=== PATIENT | female | born 1955 | race Caucasian/White ===

== ENCOUNTER 2023-06-24 22:50 | Emergency (ER) | payer MEDICARE, SELFPAY ==
[2023-06-24] VITALS (7 sets, daily range): BP systolic 168; BP diastolic 69; PULSE 104–120; RESP 17–32; TEMP 37.6; O2SAT 98
--- NOTE | 2023-06-24 23:00 | RT.EKG_ITS ---
APPROVED REPORT Exam: Resting ECG Reason for Exam: vomiting Patient Location: E HR:101 bpm ECG Measurements Heart Rate 101 AXIS UT 144 P 78 QRSd 95 QRS -31 QT 324 T 23 QTc 421 Conclusion Sinus tachycardia...rate> 99 Probable left atrial enlargement...P >50mS, <-0.10mV V1 Left axis deviation...QRS axis (-30,-90) Low voltage, precordial leads...precordial leads <1.0mV No ST segment or T wave abnormalities to suggest occlusive AR.
--- NOTE | 2023-06-24 23:00 | DI.CT_ITS ---
Exam(s) CT ABDOMEN PELVIS WO EXAM: CT ABDOMEN PELVIS WO CLINICAL HISTORY: N/V, epigastric tenderness. TECHNIQUE: Imaging Protocol: Axial computed tomography images with coronal and sagittal reformatted images were created and reviewed CONTRAST MATERIAL: Intravenous: none Oral: None COMPARISON: No exams were available for comparison FINDINGS: VISUALIZED LUNG BASES: Mild infiltrate and atelectasis in the right lung base. No pleural effusions. ABDOMEN: There is no ascites. LIVER: There are no obvious focal hepatic lesions evident of this noninfused study. GALLBLADDER/BILIARY: Gallbladder not seen and may be surgically absent. No obvious dilatation of celia iary tree evident on this non few study. PANCREAS: No evidence of pancreatic mass nor dilatation of the pancreatic duct. SPLEEN: Spleen is not enlarged. No obvious intrasplenic lesions. ADRENALS: Right adrenal gland unremarkable. There is a hypodense nodule in the left adrenal gland me asuring 1.6 by 1.2 cm. Hounsfield units -24. Probable benign adenoma. KIDNEYS:Left kidney unremarkable. There is a 4-5 millimeter nonobstructive calculus in the right kid edith. No other focal renal findings. No solid renal masses. No calculi nor hydronephrosis. . ABDOMINAL AORTA: Calcified but not enlarged. LYMPH NODES: There is no retroperitoneal nor paraaortic adenopathy. ABDOMINAL WALL: No evidence of significant anterior abdominal wall nor inguinal hernia. GI: There is no evidence of bowel obstruction, free air, nor abscess. PELVIS: LYMPH NODES: There is no intrapelvic nor inguinal adenopathy. GI: No evidence of appendicitis.No evidence of sigmoid diverticulitis. URINARY BLADDER: No calculi nor obvious masses evident REPRODUCTIVE: Thickened or fluid-filled endometrial cavity. Ultrasound recommended. No abnormal adn exal masses. No free fluid. OSSEOUS: Nonacute appearing 60 percent compression fracture of T12 as well as milder superior endplat e compression fractures in the lumbar spine multiple levels. No acute appearing fractures. No lytic nor blastic osseous lesions identified. IMPRESSION: 1. There is a 16 x 12 mm hypodense left adrenal nodule which, given the Hounsfield unit measurements, is most probably a benign adenoma. The opposite-right adrenal gland appears unremarkable. 2. Thickened or fluid-filled prominent endometrial cavity. Ultrasound is recommended for further jluis dy of the endometrium. 3. Multiple nonacute compression fractures, most prominent at T12 level. RADIATION DOSE DELIVERED: 810.32mGy.cm Total DLP DATA REPOSITORY: All CT scans at this facility are submitted to the National Radiology Data Registry (NRDR) Dose Index Registry (DIR) with the [employer] ([employer]). RADIATION OPTIMIZATION: All CT scans at this facility use at least one of these dose optimization te chniques: automated exposure control; mA and/or kV adjustment per patient size (includes targeted exa ms where dose is matched to clinical indication); or iterative reconstruction.
--- NOTE | 2023-06-24 23:12 | W.ED.GENAD ---
Discharge Plan Discharge Details Chief Complaint: Nausea/Vomit/Diar ED Provider: Guadalupe Justice General Date/Time Provider Initiated Documentation: 06/24/23 23:00. Stated Complaint: Nausea/Vomit/Diar NIRU: 3 Course Vital Signs Vital signs: Vital Signs Temperature 36.4 C L 06/24/23 22:45 Pulse 107 H 06/24/23 22:45 Respiratory Rate 20 06/24/23 22:45 Blood Pressure 168/69 H 06/24/23 22:45 Pulse Oximetry 98 06/24/23 22:45 Temperature 36.4 C L 06/24/23 22:45 Pulse 107 H 06/24/23 22:45 Respiratory Rate 20 06/24/23 22:45 Respiratory Effort Normal 06/24/23 22:49 Blood Pressure 168/69 H 06/24/23 22:45 Pulse Oximetry 98 06/24/23 22:45 Oxygen Delivery Method Nasal Cannula 06/24/23 22:45 Oxygen Flow Rate 3 06/24/23 22:45 Pain Level 10 06/24/23 22:45 Medical Decision Making Quality:SDOH Health Related Social Needs: No Data to Display PFSH Social History Smoking risk assessment performed?: No Housing: pen[facility]entiary
--- NOTE | 2023-06-24 23:13 | W.ED.GENAD ---
Discharge Plan Disposition Patient Disposition: Transfer-Acute Inpatient Care Specific Acute Inpt Facility: [facility] Condition: Critical Discharge Details Clinical Impression: DKA (diabetic ketoacidosis) Primary Care Provider: Unknown,Unknown ED Provider: Guadalupe Justice Home Meds and New Rx's Prescriptions: No Action Airsupra 90-80 mcg/actuation HFA aerosol inhaler 2 inh inhalation TID PRN aspirin [Adult Aspirin Regimen] 81 mg tablet,delayed release (DR/EC) 81 mg PO DAILY budesonide-formoterol [Breyna] 160-4.5 mcg/actuation HFA aerosol inhaler 2 inh inhalation BID cholecalciferol (vitamin D3) 25 mcg (1,000 unit) capsule 25 mcg PO DAILY clonazepam 1 mg tablet 1 mg PO BID clotrimazole 1 % cream 1 applic topical BID bisacodyl [Dulcolax (bisacodyl)] 10 mg suppository 10 mg OK DAILY PRN duloxetine 60 mg capsule,delayed release(DR/EC) 60 mg PO DAILY Enema 19-7 gram/118 mL enema 118 ml OK DAILY PRN gabapentin 600 mg tablet 600 mg PO BID hydromorphone 2 mg tablet 2 mg PO Q6H insulin aspart U-100 [Novolog FlexPen U-100 Insulin] 100 unit/mL (3 mL) insulin pen 1 sliding scale dose subcut USEASDIRECTD insulin glargine 100 unit/mL (3 mL) insulin pen, sensor 10 unit subcut QPM insulin glargine 100 unit/mL (3 mL) insulin pen, sensor 10 unit subcut QAM lidocaine [Lidoderm] 5 % adhesive patch,medicated 1 patch topical DAILY Rx Instructions: leave on most painful area for up to 12 hrs magnesium hydroxide [Milk of Magnesia] 400 mg/5 mL suspension 10 ml PO QID PRN polyethylene glycol 3350 [Miralax] 17 gram/dose powder 17 g PO DAILY montelukast 10 mg tablet 10 mg PO QHS insulin aspart U-100 [Novolog FlexPen U-100 Insulin] 100 unit/mL (3 mL) insulin pen 3 unit subcut QACBREAK insulin aspart U-100 [Novolog U-100 Insulin aspart] 100 unit/mL solution 3 unit subcut QACLUNCH insulin aspart U-100 [Novolog FlexPen U-100 Insulin] 100 unit/mL (3 mL) insulin pen 3 unit subcut QACDINNER lansoprazole [Prevacid SoluTab] 30 mg tablet,disintegrat, delay rel 30 mg PO DAILY rosuvastatin 5 mg tablet 5 mg PO DAILY sennosides [Sen-O-Tab] 8.6 mg tablet 8.6 mg PO BID acetaminophen [Acetaminophen Extra Strength] 500 mg tablet 500 mg PO ONCE HPI General Mode of arrival: EMS. Date/Time Provider Initiated Documentation: 06/24/23 23:00. Limitations to Documentation: no limitations. Information obtained by: patient, EMS and old records reviewed. HPI Narrative: 68yo F with history of T1DM, COPD on baseline 3L NC, CAD, failure to thrive, presenting from subacute rehab facility for nausea and vomiting. Patient poor historian, medical history obtained from rehab records. Patient reports vomiting since 0400 yesterday, unable to keep anything down. Associated epigastric abdominal pain. Not sure why she is in rehab, just that [facility] sent me there. Went to [facility] initially for my daughter drove me there; when asked why states the same as now. Based on records sent with patient, appears to have been admitted to rehab 06/22/23. Blood glucose for EMS 263. She is otherwise in her usual state of health with no fevers, chills, rash, dysuria, hematuria, numbness, tingling, weakness, or other concerns. Related Data Home Medications Medication Instructions Recorded Confirmed albuterol 90 mcg-budesonide 80 2 inh inhalation TID PRN 06/24/23 06/24/23 mcg/actuation HFA aerosol inhaler (Airsupra) aspirin 81 mg tablet,delayed 81 mg PO DAILY 06/24/23 06/24/23 release (Adult Aspirin Regimen) budesonide-formoterol HFA 160 2 inh inhalation BID 06/24/23 06/25/23 mcg-4.5 mcg/actuation aerosol inhaler (Breyna) acetaminophen 500 mg tablet 500 mg PO ONCE 06/25/23 06/25/23 (Acetaminophen Extra Strength) bisacodyl 10 mg rectal suppository 10 mg OK DAILY PRN 06/25/23 06/25/23 (Dulcolax (bisacodyl)) cholecalciferol (vitamin D3) 25 25 mcg PO DAILY 06/25/23 06/25/23 mcg (1,000 unit) capsule clonazepam 1 mg tablet 1 mg PO BID 06/25/23 06/25/23 clotrimazole 1 % topical cream 1 applic topical BID 06/25/23 06/25/23 duloxetine 60 mg capsule,delayed 60 mg PO DAILY 06/25/23 06/25/23 release gabapentin 600 mg tablet 600 mg PO BID 06/25/23 06/25/23 hydromorphone 2 mg tablet 2 mg PO Q6H 06/25/23 06/25/23 insulin aspart U-100 100 unit/mL 1 sliding scale dose subcut 06/25/23 06/25/23 (3 mL) subcutaneous pen (Novolog USEASDIRECTD FlexPen U-100 Insulin aspart) insulin aspart U-100 100 unit/mL 3 unit subcut QACBREAK 06/25/23 06/25/23 (3 mL) subcutaneous pen (Novolog FlexPen U-100 Insulin aspart) insulin aspart U-100 100 unit/mL 3 unit subcut QACDINNER 06/25/23 06/25/23 (3 mL) subcutaneous pen (Novolog FlexPen U-100 Insulin aspart) insulin aspart U-100 100 unit/mL 3 unit subcut QACLUNCH 06/25/23 06/25/23 subcutaneous solution (Novolog U-100 Insulin aspart) insulin glargine 100 unit/mL (3 10 unit subcut QAM 06/25/23 06/25/23 mL) subcutaneous pen, sensor insulin glargine 100 unit/mL (3 10 unit subcut QPM 06/25/23 06/25/23 mL) subcutaneous pen, sensor lansoprazole 30 mg delayed 30 mg PO DAILY 06/25/23 06/25/23 release,disintegrating tablet (Prevacid SoluTab) lidocaine 5 % topical patch 1 patch topical DAILY 06/25/23 06/25/23 (Lidoderm) magnesium hydroxide 400 mg/5 mL 10 ml PO QID PRN 06/25/23 06/25/23 oral suspension (Milk of Magnesia) montelukast 10 mg tablet 10 mg PO QHS 06/25/23 06/25/23 polyethylene glycol 3350 17 17 g PO DAILY 06/25/23 06/25/23 gram/dose oral powder (Miralax) rosuvastatin 5 mg tablet 5 mg PO DAILY 06/25/23 06/25/23 sennosides 8.6 mg tablet 8.6 mg PO BID 06/25/23 06/25/23 (Sen-O-Tab) sodium phosphates 19 gram-7 118 ml OK DAILY PRN 06/25/23 06/25/23 gram/118 mL enema (Enema) Allergies Allergy/AdvReac Type Severity Reaction Status Date / Time bee pollen Allergy Other (See Verified 06/25/23 00:21 Comment) latex Allergy Other (See Verified 06/25/23 00:21 Comment) morphine Allergy Other (See Verified 06/25/23 00:21 Comment) nickel Allergy Other (See Verified 06/25/23 00:21 Comment) Penicillins Allergy Other (See Verified 06/25/23 00:21 Comment) Sulfa (Sulfonamide Allergy Other (See Verified 06/25/23 00:21 Antibiotics) Comment) tetanus toxoid, adsorbed Allergy Other (See Verified 06/25/23 00:21 Comment) General Stated Complaint: Nausea/Vomit/Diar NIRU: 3 Review of Systems Narrative: see HPI Exam Narrative Exam Narrative: General: Alert, cluching emesis bag. Head: Normocephalic, atraumatic Neck: Trachea midline, ?Neck supple. ENT: ?MMM.? No oropharygeal lesions or exudate. Cardiac: ?RRR, no murmurs appreciated Resp: No respiratory distress. CTAB. Abd: ?Soft, non-distended, mild epigastric tenderness with no rebound or guarding. : ?No suprapubic tenderness. No CVA tenderness. Extremities: ?No deformities.? No peripheral edema. Neurologic: GCS 14. ? Moves all extremities freely against gravity Course Vital Signs Vital signs: Vital Signs Temperature 36.4 C L 06/24/23 22:45 Pulse 107 H 06/24/23 22:45 Respiratory Rate 20 06/24/23 22:45 Blood Pressure 168/69 H 06/24/23 22:45 Pulse Oximetry 98 06/24/23 22:45 Temperature 36.4 C L 06/24/23 22:45 Pulse 107 H 06/24/23 22:45 Respiratory Rate 20 06/24/23 22:45 Respiratory Effort Normal 06/24/23 22:49 Blood Pressure 168/69 H 06/24/23 22:45 Pulse Oximetry 98 06/24/23 22:45 Oxygen Delivery Method Nasal Cannula 06/24/23 22:45 Oxygen Flow Rate 3 06/24/23 22:45 Pain Level 10 06/24/23 22:45 Procedures Central Line Placement Left IJ: Time Out Performed: Yes Patient Placed on Monitor/Pulse Ox: Yes MD Prep: mask, gown and gloves Central Line Prep: Chlorhexidine scrub Local Anesthetic: Lidocaine 1% Amount of anesthesia used (mL): 3 Ultrasound Used for Placement: Yes Patient Tolerated Procedure: other Complications: hematoma at puncture site Additional Comments: Insertion attempted in left IJ under US guidance, patient moved during insertion of needle. Venous oozing from site afterwards however some developing swelling so concern for possible arterial puncture though not clear. Pressure held for 10 minutes, on reassessment stable echymosis, no further swelling. Reassess at one hour after again with no change. Right Femoral: Time Out Performed: Yes Patient Placed on Monitor/Pulse Ox: Yes MD Prep: mask, gown and gloves Central Line Prep: Chlorhexidine scrub and sterile drapes applied Local Anesthetic: Lidocaine 1% Amount of anesthesia used (mL): 3 Ultrasound Used for Placement: Yes Central Line Lumen Inserted: triple Post Procedure: good blood return, all ports aspirated, flushed, capped and sutured in place with 2-0 silk Patient Tolerated Procedure: well Complications: none Medical Decision Making 68yo F with history of T1DM, COPD on baseline 3L NC, CAD, failure to thrive, presenting from subacute rehab facility for nausea and vomiting. Patient poor historian, medical history obtained from rehab records. Vomiting since 0400 yesterday, associated epigastric pain, recent admission to [facility] for unknown reasons and dced to subactue rehab on 06/22/23. Blood glucose for EMS 263, given zofran [employer]. Hypertensive with SBP 160's, slightly tachcyardiac to 107 on arrival. Afebrile. Mild epigastric tenderness on exam. CT abd/pelvis independently reviewed; no obstruction or free fluid on my view, agree with radiology read below. Non-contrasted scan as patient with very difficult IV access. Labs reviewed as below, CBC with slight leukocytosis to 13; sepsis possible though less likely; is SIRS + with possible GI source. Pxn allergy, will do meropenum and fluid resus. Lipase not suggestive of pancreatitis, CMP with marked acidosis bicaarb of 12.3 and elevated gapt at 23.7, glucose 301. Concerning for DKA. VBG with pH 7.23, lactate 1.8 not source of acidosis. Continues fluid resuscitation, attempts made at PIV access without success and required central line placement which delayed initation of insulin. Started on insulin gtt and DKA protocol. No ICU capacity and [facility] at this time. Discussed with [facility] hospitalist Dr. Marte and patient accepted to ICU. Repeat BMP essentially unchanged. Continuing fluids/insulin/potassium per protocol. Awaiting transport. Imaging Data Radiologic Study: Imaging: CT Scan Radiologist's impression: IMPRESSION: 1. No acute findings on noncontrast imaging. 2. Incidental findings as described. Lab Data Lab results reviewed: Yes I reviewed the patient's lab results. Labs: Laboratory Tests Range/Units 06/24/23 06/25/23 06/25/23 23:18 01:00 01:03 WBC (4.4-10.8) 10^3/uL 12.97 H RBC (3.93-5.22) 10^6/uL 4.70 Hgb (11.2-15.7) g/dL 14.4 Hct (36.0-46.0) % 43.8 MCV (80-95) fL 93 MCH (27.0-33.0) pg 30.6 MCHC (32.0-36.0) % 32.9 RDW (11.7-14.6) % 15.1 H Plt Count (130-400) 10^3/uL 332 MPV (8.0-11.0) fL 9.9 Immature Gran % 0.7 Neutrophils % 82.7 Lymphocytes % 9.9 Monocytes % 5.6 Eosinophils % 0.8 Basophils % 0.3 Nucleated RBC % (0.0-0.3) % 0.0 Absolute Neutrophils (1.2-6.7) 10^3/uL 10.73 H Absolute Lymphocytes (1.2-3.4) 10^3/uL 1.28 Absolute Monocytes (0.1-0.8) 10^3/uL 0.73 Absolute Eosinophils (0.0-0.7) 10^3/uL 0.10 Absolute Basophils (0.0-0.2) 10^3/uL 0.04 VBG pH (7.31-7.41) 7.23 L VBG pCO2 (41-51) mmHg 35 L VBG pO2 mmHg 37 VBG HCO3 (23-28) mmol/L 15 L VBG Total CO2 (24-29) mmol/L 14 L VBG O2 Saturation % 63 VBG Base Excess (-2-3) mmol/L -13 L VBG Lactate (0.6-1.4) mmol/L 1.8 H Sodium (136-145) mmol/L 134 L Potassium (3.5-5.1) mmol/L 4.3 Chloride (98-107) mmol/L 98 Carbon Dioxide (21.0-32.0) mmol/L 12.3 L Anion Gap (3-11) mmol/L 23.7 H BUN (7-18) mg/dL 20 H Creatinine (0.55-1.02) mg/dL 1.0 Est GFR (CKD-EPI 2020) (mL/min/1.73m2) 60.61 Glucose (74-106) mg/dL 301 H Calcium (8.5-10.1) mg/dL 9.4 Magnesium (1.8-2.4) mg/dL 2.0 Total Bilirubin (0.2-1.0) mg/dL 1.0 AST (15-37) U/L 19 ALT (14-59) U/L 41 Alkaline Phosphatase (46-116) U/L 113 Troponin I (< or =60) ng/L < 50 Total Protein (6.4-8.2) g/dL 7.3 Albumin (3.4-5.0) g/dL 3.8 Lipase (16-77) U/L < 10 L Quality:SDOH Health Related Social Needs: No Data to Display Critical Care Time Critical Care Time Critical Care Time: Yes Total Critical Care Time: 36 Attestation: Due to a high probability of clinically significant, life threatening deterioration, the patient required my highest level of preparedness to intervene emergently and I personally spent this critical care time directly and personally managing the patient. This critical care time included obtaining a history; examining the patient; pulse oximetry; ordering and review of studies; arranging urgent treatment with development of a management plan; evaluation of patient's response to treatment; frequent reassessment; and, discussions with other providers. This critical care time was performed to assess and manage the high probability of imminent, life-threatening deterioration that could result in multi-organ failure. It was exclusive of separately billable procedures? PFSH All Active Problems (Updated 06/25/23 @ 04:16 by Guadalupe Justice MD) DKA (diabetic ketoacidosis) (Acute) Social History Smoking risk assessment performed?: No Housing: long term
[2023-06-24 23:24] LABS: Abs Immature Grans 0.09 10^3/uL (0.0-0.06); Absolute Basophil Count 0.04 10^3/uL (0.0-0.2); Absolute Monocyte Count 0.73 10^3/uL (0.1-0.8); Basophils % 0.3; Eosinophils % 0.8; HCT 43.8 % (36.0-46.0); HGB 14.4 g/dL (11.2-15.7); Immature Grans % 0.7; Lymphocytes % 9.9; MCH 30.6 pg (27.0-33.0); MCHC 32.9 % (32.0-36.0); MCV 93 fL (80-95); MPV 9.9 fL (8.0-11.0); Monocytes % 5.6; Neutrophils % 82.7; Platelet Count 332 10^3/uL (130-400); RDW 15.1 % (11.7-14.6); RDW-SD 52.5 fL; WBC 12.97 10^3/uL (4.4-10.8)
[2023-06-24 23:25] LABS: Absolute Lymphocyte Count 1.28 10^3/uL (1.2-3.4); Absolute Neutrophil Count 10.73 10^3/uL (1.2-6.7)
[2023-06-24] MEDS: Ondansetron 4 MG/2 ML VIAL IVP (23:29)
[2023-06-24] MEDS: Normal Saline 1,000 ML 1000 ML IV (23:29)
[2023-06-24 23:44] LABS: ALT 41 U/L (14-59); AST 19 U/L (15-37); Albumin 3.8 g/dL (3.4-5.0); Alkaline Phosphatase 113 U/L (46-116); Anion Gap 23.7 mmol/L (3-11); BUN 20 mg/dL (7-18); CO2 12.3 mmol/L (21.0-32.0); Calcium 9.4 mg/dL (8.5-10.1); Chloride 98 mmol/L (98-107); Estimated GFR 60.61 (mL/min/1.73m2); Glucose 301 mg/dL (74-106); Lipase < 10 U/L (16-77); Potassium 4.3 mmol/L (3.5-5.1); Sodium 134 mmol/L (136-145); Total Protein 7.3 g/dL (6.4-8.2); Troponin I < 50 ng/L (< or =60)
[2023-06-25] VITALS (55 sets, daily range): BP systolic 85–188; BP diastolic 50–139; PULSE 99–145; RESP 12–43
--- NOTE | 2023-06-25 00:21 | DI.VRAD_ITS ---
PROCEDURE INFORMATION: Exam: CT Abdomen And Pelvis Without Contrast Exam date and time: 06/24/2023 11:55 PM Age: 68 years old Clinical indication: Nausea and vomiting; Additional info: N/v, epigastric tenderness TECHNIQUE: Imaging protocol: Computed tomography of the abdomen and pelvis without contrast. COMPARISON: No relevant prior studies available. FINDINGS: Lungs: Minimal dependent subsegmental atelectasis. Liver: No hepatic masses on noncontrast imaging. Gallbladder and bile ducts: The gallbladder is either surgically absent or very contracted. Please correlate with surgical history. No significant biliary dilation or radiopaque stones in the biliary tree. Pancreas: No gross pathology in the pancreas on noncontrast imaging. Spleen: No splenomegaly or focal lesions. Adrenal glands: Suspected small benign left adrenal adenoma. Normal right adrenal gland. Kidneys and ureters: Nonobstructive right nephrolithiasis. No left hydronephrosis. Stomach and bowel: On noncontrast imaging no acute pathology in stomach, duodenal small bowel or colon. Moderate colonic stool burden. Appendix: No evidence of appendicitis. Intraperitoneal space: No free air. No significant fluid collection. Vasculature: No abdominal aortic aneurysm. Lymph nodes: No significantly enlarged lymph nodes. Urinary bladder: Unremarkable as visualized. Reproductive: Hysterectomy. Small amount of benign-appearing fluid in the vagina. Bones/joints: Chronic bony changes with no acute fracture. Soft tissues: No suspicious lesions. IMPRESSION: 1. No acute findings on noncontrast imaging. 2. Incidental findings as described. Dictated and Authenticated by: Milly Aguirre MD. Ordering:SOPHIE Butcher MD
[2023-06-25 01:03] LABS: Lactate 1.8 mmol/L (0.6-1.4)
[2023-06-25 01:08] LABS: BE (Venous) -13 mmol/L (-2-3); HCO3 (Venous) 15 mmol/L (23-28); O2 Sat (Venous) 63 %; TCO2 (Venous) 14 mmol/L (24-29); pCO2 (Venous) 35 mmHg (41-51); pH (Venous) 7.23 (7.31-7.41); pO2 (Venous) 37 mmHg
[2023-06-25 01:20] LABS: Bilirubin Small (Negative); Blood Trace-intact (Negative); Clarity Clear (Clear); Glucose 500 mg/dL (Negative); Ketones >=160 mg/dL (Negative); Leukocyte Esterase Negative (Negative); Nitrite Negative (Negative); Specific Gravity >= 1.030 (1.005-1.025); Urobilinogen 0.2 mg/dL (Up to 0.2); pH 5.5 (5-8)
[2023-06-25 01:23] LABS: Bacteria Rare HPF (Negative); C & S Indicated? No; Casts Negative LPF (Negative); Crystals Negative HPF (Negative); Epithelial Cells Rare HPF (Negative); Mucus Negative (Negative); RBC 0-2 HPF (0-2); WBC Negative HPF (0-5)
[2023-06-25] MEDS: Normal Saline 1,000 ML 150 ML IV (01:27)
[2023-06-25 01:28] LABS: PHOSPHORUS 3.5 mg/dL (2.6-4.7)
[2023-06-25] MEDS: HYDROmorphone 2 MG/ML SYR 0.5 MG IVP (02:23)
[2023-06-25] MEDS: INSULIN REGULAR IN 0.9 % NACL 100 UNIT/100 ML BAG IV (04:04)
[2023-06-25 04:49] LABS: COVID-19 PCR Negative (Negative); Influenza A PCR Negative (Negative); Influenza B PCR Negative (Negative); RSV PCR Negative (Negative)
[2023-06-25] MEDS: Normal Saline 1,000 ML 1000 ML IV ×2 (04:49→05:05)
[2023-06-25 04:51] LABS: Source Nasopharynx
--- NOTE | 2023-06-25 05:02 | NUR.NOTE ---
0500 BG = 267. (starting 335-267=68 decrease). Per protocol - NO RATE CHANGE.
[2023-06-25] MEDS: MEROPENEM 1 GM in Normal Saline 100 ML IVPB (05:57)
[2023-06-25 06:18] LABS: ALT 33 U/L (14-59); AST 9 U/L (15-37); Albumin 3.3 g/dL (3.4-5.0); Alkaline Phosphatase 103 U/L (46-116); Anion Gap 22.7 mmol/L (3-11); BUN 16 mg/dL (7-18); Bilirubin, Total 0.8 mg/dL (0.2-1.0); CO2 11.3 mmol/L (21.0-32.0); CREATININE 0.9 mg/dL (0.55-1.02); Calcium 7.8 mg/dL (8.5-10.1); Chloride 104 mmol/L (98-107); Estimated GFR 68.77 (mL/min/1.73m2); Glucose 254 mg/dL (74-106); Potassium 3.7 mmol/L (3.5-5.1); Sodium 138 mmol/L (136-145); Total Protein 6.5 g/dL (6.4-8.2); Troponin I < 50 ng/L (< or =60)
--- NOTE | 2023-06-25 06:39 | NUR.NOTE ---
0600 BG = 243. Decrease from 267 (-24). Per protocol: Insulin tritrated up to 2.5units/hr.
--- NOTE | 2023-06-25 07:10 | NUR.NOTE ---
Nursing Note: Pt received at change of shift. Due for glucose, insulin adjusted per protocol. Report given to RN Dariana Melvin cryogenic transport driver. manufacturing shift supervisor gave report to [facility]. Awaiting ready ambulance.
[2023-06-25] MEDS: Ondansetron 4 MG/2 ML VIAL (07:51)
== END 2023-06-25 08:00 | disposition short-term general hospital (02) ==
PROVIDERS: Emergency Provider Student in an Organized Health Care Education/Training Program
DX: E10.10 Type 1 diabetes mellitus with ketoacidosis without coma (principal); R11.2 Nausea with vomiting, unspecified; J44.9 Chronic obstructive pulmonary disease, unspecified; I25.10 Atherosclerotic heart disease of native coronary artery without angina pectoris; Z11.52 Encounter for screening for COVID-19; Z79.82 Long term (current) use of aspirin; Z79.4 Long term (current) use of insulin; Z99.81 Dependence on supplemental oxygen
CPT/HCPCS: 36415; 36556; 51702; 80048; 80053; 82805; 82962; 83690; 87637; 93005; 96361; 96365; 96375; 99291; 74176; 81003; 81015; 83605; 83735; 84100; 84484; 85025; 93010; J1170; J2185; J2405